=== PATIENT | male | born 1985 | race Caucasian/White ===

== ENCOUNTER → 2020-08-12 | Outpatient (REF) | payer OTHER | LOC: M SMT 13:27 | PROVIDERS: ATTEND Urology | DX: Z30.2 Encounter for sterilization (principal) ==

== ENCOUNTER 2020-10-25 19:23 | Emergency (ER) | payer OTHER ==
[~2020-10-25] VITALS: Ht 172.7 cm; Wt 92.7 kg
--- NOTE | 2020-10-25 20:00 | REP ---
INDICATION: injury. COMPARISON: None. TECHNIQUE: Four views FINDINGS: No acute fracture or destructive osseous lesion. The mortise is intact. IMPRESSION: Negative exam <Electronically signed by Manpreet May > 10/25/[id number]
--- NOTE | 2020-10-25 23:28 | REPVR ---
PROCEDURE INFORMATION: Exam: XR Right Foot Exam date and time: 10/25/20 (10:21pm) Age: 34 years old Clinical indication: Trauma. Right foot pain. TECHNIQUE: Imaging protocol: XR Right foot Views: 3 or more views COMPARISON: Right ankle plain films of 10/25/20 FINDINGS: Bones/joints: Unremarkable. No acute fracture nor dislocation. Soft tissues: Unremarkable. IMPRESSION: No acute findings. Electronically signed by: Rocio Osborn On 10/25/2020 23:28:24 PM
[2020-10-25 23:50] VITALS: BP 117/72
== END 2020-10-25 23:53 | disposition home or self-care (01) ==
LOC: M ED 19:23
DX: S93.401A Sprain of unspecified ligament of right ankle, initial encounter (principal); W50.0XXA Accidental hit or strike by another person, initial encounter; Y92.9 Unspecified place or not applicable; Y93.89 Activity, other specified; Y99.9 Unspecified external cause status; Z88.0 Allergy status to penicillin

== ENCOUNTER 2020-11-12 12:40 | Emergency (ER) | payer OTHER ==
[~2020-11-12] VITALS: Ht 172.7 cm; Wt 88.6 kg
[2020-11-12 12:49] VITALS: BP 141/79
--- NOTE | 2020-11-12 13:09 | REP ---
INDICATION: pain sliding into base. COMPARISON: None. TECHNIQUE: Four views of the left ankle are provided. FINDINGS: Four views of the left ankle demonstrate mild anterolateral soft tissue swelling. Ankle mortise is intact. No fracture is seen. Joint spaces are preserved. No opaque foreign body noted. IMPRESSION: Anterolateral soft tissue swelling. No fracture or subluxation seen. <Electronically signed by Jesús Alvarez > 11/12/20 [id number]
[2020-11-12] MEDS ORDERED: NAPR-837 PO (13:44)
== END 2020-11-12 13:52 | disposition home or self-care (01) ==
LOC: M ED 12:40 → EDBD 12:40 → M ED 13:52
DX: S93.402A Sprain of unspecified ligament of left ankle, initial encounter (principal); X50.1XXA Overexertion from prolonged static or awkward postures, initial encounter; Y92.830 Public park as the place of occurrence of the external cause; Y93.9 Activity, unspecified; Y99.9 Unspecified external cause status; Z88.0 Allergy status to penicillin

== ENCOUNTER 2021-06-16 17:06 | Emergency (ER) | payer OTHER ==
[~2021-06-16] VITALS: Ht 172.7 cm; Wt 94.2 kg
[~2021-06-16 17:06] MED LIST: NAPR-837 PO
[2021-06-16] MEDS ORDERED: IBUP200C25 PO (17:18)
[2021-06-16] MEDS ORDERED: NS 1,000 ML IV ONE (17:25)
[2021-06-16] MEDS ORDERED: ONDANSETRON 4MG/2ML VIAL IV ONE (17:35)
[2021-06-16 17:57] LABS: BASO % 0.3 % (0.0-1.0); EOS % 0.4 % (0.0-3.0); HEMATOCRIT 45.7 % (42.0-52.0); HEMOGLOBIN 15.4 g/dl (13.5-17.5); LYMPH # 2.4 10^3/uL (1.5-5.0); LYMPH % 20.8 % (24.0-44.0); MEAN CORPUSCULAR HEMOGLOBIN 26.9 pg (27.0-33.0); MEAN CORPUSCULAR HGB CONC 33.7 g/dl (32.0-36.5); MEAN CORPUSCULAR VOLUME 79.9 fl (80.0-96.0); MONO # 0.7 10^3/uL (0.0-0.8); MONO % 6.3 % (2.0-8.0); NEUTROPHILS # 8.2 10^3/uL (1.5-8.5); NEUTROPHILS % 71.9 % (36.0-66.0); PLATELET COUNT, AUTOMATED 258 10^3/uL (150-450); RED BLOOD COUNT 5.72 10^6/uL (4.30-6.10); WHITE BLOOD COUNT 11.4 10^3/uL (4.0-10.0)
[2021-06-16] MEDS ORDERED: KETOROLAC 30 MG/ML 1ML VIAL IV ONE (18:00)
[2021-06-16 18:19] LABS: ALBUMIN 4.5 GM/DL (3.2-5.2); BILIRUBIN,DIRECT 0.1 MG/DL (0.0-0.2); BILIRUBIN,TOTAL 0.5 MG/DL (0.2-1.0); CREATININE FOR GFR 1.44 MG/DL (0.70-1.30); GLOMERULAR FILTRATION RATE 59.8 (>60); POTASSIUM SERUM 3.9 MEQ/L (3.5-5.1); TOTAL PROTEIN 8.4 GM/DL (6.4-8.2)
[2021-06-16] MEDS ORDERED: ZOFR4TAB16 PO (19:36)
[2021-06-16] MEDS ORDERED: KETO10TAB PO (19:36)
[2021-06-16] MEDS ORDERED: FLOM0.4C39 PO (19:37)
[2021-06-16] MEDS ORDERED: CIPR-249 PO (19:43)
[2021-06-16] MEDS ORDERED: TAMSULOSIN 0.4 MG CAP PO ONE ×2 (19:50→19:55)
[2021-06-16] MEDS ORDERED: CIPROFLOXACIN 500MG TABLET PO ONE ×3 (19:50)
[2021-06-16] MEDS ORDERED: ONDANSETRON 4 MG TAB PO ONE ×2 (19:55)
[2021-06-16] MEDS ORDERED: KETOROLAC TROMETHAMINE 10 MG TAB PO ONE (20:15)
[2021-06-16 21:16] VITALS: BP 148/77
== END 2021-06-16 21:20 | disposition home or self-care (01) ==
LOC: M ED 17:06
DX: N10 Acute pyelonephritis (principal); E86.0 Dehydration; K76.0 Fatty (change of) liver, not elsewhere classified; N13.2 Hydronephrosis with renal and ureteral calculous obstruction; R79.89 Other specified abnormal findings of blood chemistry; Z88.0 Allergy status to penicillin
CPT/HCPCS: 74176; 80048; 80076; 81001; 83605; 83690; 85025; 87040; 96374; 96375; 99284; J1885; J2405; U0002

== ENCOUNTER 2022-03-31 05:11 | Emergency (ER) | payer OTHER ==
[~2022-03-31] VITALS: Ht 172.7 cm; Wt 88.6 kg
[~2022-03-31 05:11] MED LIST changes: +CIPR-249 PO; +CLEO300C2 PO; +FLOM0.4C39 PO; +IBUP200C25 PO; +KETO10TAB PO; +ZOFR4TAB16 PO
[2022-03-31] MEDS ORDERED: GABAPENTIN 300 MG CAP PO ONE (07:35)
[2022-03-31] MEDS ORDERED: valACYclovir HCL 500 MG TAB PO ONE (07:35)
[2022-03-31] MEDS ORDERED: NEUR300C PO (07:36)
[2022-03-31] MEDS ORDERED: VALA1TAB5 PO (07:36)
[2022-03-31 07:45] VITALS: BP 124/75
== END 2022-03-31 08:00 | disposition home or self-care (01) ==
LOC: M ED 05:11
DX: B02.9 Zoster without complications (principal); Z88.0 Allergy status to penicillin

== ENCOUNTER 2022-08-16 10:27 | Emergency (ER) | payer OTHER ==
[~2022-08-16] VITALS: Ht 172.7 cm; Wt 93.6 kg
[~2022-08-16 10:27] MED LIST changes: +NEUR300C PO; +VALA1TAB5 PO
[2022-08-16 11:20] LABS: BASO % 0.2 % (0.0-1.0); EOS # 0.2 10^3/uL (0.0-0.5); EOS % 2.8 % (0.0-3.0); HEMATOCRIT 43.3 % (42.0-52.0); HEMOGLOBIN 14.5 g/dl (13.5-17.5); LYMPH # 2.4 10^3/uL (1.5-5.0); LYMPH % 29.4 % (24.0-44.0); MEAN CORPUSCULAR HEMOGLOBIN 26.5 pg (27.0-33.0); MEAN CORPUSCULAR HGB CONC 33.5 g/dl (32.0-36.5); MONO # 0.5 10^3/uL (0.0-0.8); MONO % 5.9 % (2.0-8.0); NEUTROPHILS % 61.5 % (36.0-66.0); PLATELET COUNT, AUTOMATED 282 10^3/uL (150-450); RED BLOOD COUNT 5.48 10^6/uL (4.30-6.10); WHITE BLOOD COUNT 8.1 10^3/uL (4.0-10.0)
[2022-08-16 11:43] LABS: LIPASE 36 U/L (12-53)
[2022-08-16 11:45] LABS: ALBUMIN 4.1 G/DL (3.2-5.2); ALKALINE PHOSPHATASE 115 U/L (46-116); ALT/SGPT 53 U/L (7.0-40); AST/SGOT 24 U/L (<34); BILIRUBIN,DIRECT 0.2 MG/DL (<0.4); BILIRUBIN,TOTAL 0.5 MG/DL (0.3-1.2); BLOOD UREA NITROGEN 10 MG/DL (9-23); CALCIUM LEVEL 9.3 MG/DL (8.5-10.1); CARBON DIOXIDE LEVEL 29 MMOL/L (20-31); CHLORIDE LEVEL 105 MMOL/L (98-107); CREATININE FOR GFR 0.94 MG/DL (0.70-1.30); GLOMERULAR FILTRATION RATE > 60.0 (>60); GLUCOSE, FASTING 96 MG/DL (60-100); POTASSIUM SERUM 4.1 MMOL/L (3.5-5.1); SODIUM LEVEL 140 MMOL/L (136-145); TOTAL PROTEIN 7.4 G/DL (5.7-8.2)
[2022-08-16] MEDS ORDERED: FAMOTIDINE 20 MG TAB PO ONE (11:50)
[2022-08-16] MEDS ORDERED: SIMETHICONE 80MG CHEW TAB PO ONE (11:50)
[2022-08-16] MEDS ORDERED: PILL CUTTER 1 EACH XX ONE (12:06)
[2022-08-16 13:28] VITALS: BP 137/84
== END 2022-08-16 13:32 | disposition home or self-care (01) ==
LOC: M ED 10:27
DX: K52.9 Noninfective gastroenteritis and colitis, unspecified (principal); Z87.442 Personal history of urinary calculi; Z88.0 Allergy status to penicillin